=== PATIENT | male | born 1965 | race Caucasian/White ===

== ENCOUNTER → 2017-03-20 | Outpatient (CLI) | payer OTHER ==
[~2017-03-20] VITALS: Ht 185.4 cm; Wt 72.6 kg
[~2017-03-20] MED LIST: AMBIEN 10 MG TA10 MG PO; AMBIEN PO; CIPROFLOXACIN500 M1 PO; OXYCONTIN20 M1 PO; PERCOCET 10-321 EACH; PERCOCET 5-3251 EACH PO; PERCOCET 7.5-31 EACH PO; PROTONIX PO; PROTONIX40 M1 PO; TAMSULOSIN HCL0.4 MG PO; ZOFRAN ODT4 MG PO
--- NOTE | ~2017-03-20 | S ---
[facility] [place] [address] SURGICAL PATH RPT PROCEDURE Name: MARIAJOSE HENDERSON Room #: REG [facility].#: [id number] Admission: 03/20/17 Date of : 61 Discharge: Report #: [id number] Path Case #: [id number] PATHOLOGY REPORT COLLECTION DATE: 03/20/2017 RECEIVED DATE: 03/20/2017 SUBMITTING PHYS: Dr. Skip Oconnor OTHER PHYS: Dr. Aguila Cortez SPECIMEN(S) RECEIVED: A.Bx of small bowel B.Bx of gastritis C.Bx of gastric polyps * * * * * * * * * * * * FINAL DIAGNOSIS: A. Small bowel mucosa, small bowel endoscopic biopsy: - Focal gastric fundic-type metaplasia with active inflammation compatible with mild peptic duodenitis. - Negative for villous blunting or increase in intraepithelial lymphocytes. B. Gastric mucosa, gastritis, endoscopic biopsy: - Moderate reactive gastropathy. - Negative for intestinal metaplasia or atrophy. - Negative for Helicobacter pylori. C. Polyps, gastric polyps, endoscopic biopsy: - Compatible with fundic gland polyps. - Negative for dysplasia. COMMENT: Helicobacter pylori immunohistochemical stain performed on block B1-negative. (IUV:pit; 03/24/2017) PATHOLOGIST: Liss Rushing M.D. REPORT ELECTRONICALLY SIGNED BY: Liss Rushing M.D. DATE/TIME: 03/24/2017 17:04 * * * * * * * * * * * * GROSS PATHOLOGY: A. Received in formalin labeled "Mariajose Henderson, BX of small bowel," are 3 segments of pruitt soft tissue measuring 1.1 x 0.2 x 0.2 cm in aggregate dimensions and ranging from 0.3 to 0.4 cm in maximum dimension. The specimen is submitted entirely in cassette A1. B. Received in formalin labeled "Mariajose Henderson Cly[place], BX of gastritis," are 4 segments of pruitt soft tissue measuring 2.0 x 0.[address] [address] SURGICAL PATH RPT PROCEDURE Name: MARIAJOSE HENDERSON Room #: REG [facility].#: [id number] Admission: 03/20/17 Date of : 61 Discharge: Report #: [id number] Path Case #: [id number] 0.2 cm in aggregate dimensions and ranging from 0.3 to 0.7 cm in maximum dimension. The specimen is submitted entirely in cassette B1. C. Received in formalin labeled "Mariajose Henderson [place], BX of gastric polyps," are 3 segments of pruitt soft tissue measuring 1.4 x 0.2 x 0.2 cm in aggregate dimensions and ranging from 0.2 to 0.6 cm in maximum dimension. The specimen is submitted entirely in cassette C1. (LONNIE; 03/21/2017) CLINICAL HISTORY: Anemia INITIAL CPT CODE(S): A; 05393 B; 18363, 65996 C; 93064 Professional services performed by [facility] at [address] , [place] [address] Technical services performed by [facility] at [address] [place] [address], [address], [place] [address]. [facility] [address] [place] [address] PHONE: [phone] DIRECTOR: Raymundo Bernard M.D. * * * END OF REPORT * * *
== END | disposition home or self-care (01) ==
LOC: GI 07:05
DX: K56.69 Other intestinal obstruction (principal); K31.7 Polyp of stomach and duodenum; K31.9 Disease of stomach and duodenum, unspecified; K29.70 Gastritis, unspecified, without bleeding; K21.9 Gastro-esophageal reflux disease without esophagitis; D50.9 Iron deficiency anemia, unspecified; Z87.19 Personal history of other diseases of the digestive system; Z98.890 Other specified postprocedural states
CPT/HCPCS: 62110; 62900

== ENCOUNTER → 2018-02-27 | Outpatient (CLI) | payer OTHER ==
[2018-02-27 13:46] VITALS: BP 92/58
[2018-02-27 14:30] VITALS: BP 112/58
[2018-02-27 15:00] VITALS: BP 106/67
== END ==
LOC: OPONC 13:01
DX: D50.9 Iron deficiency anemia, unspecified (principal); K62.5 Hemorrhage of anus and rectum; D50.1 Sideropenic dysphagia
CPT/HCPCS: 95000

== ENCOUNTER → 2018-03-06 | Outpatient (CLI) | payer OTHER ==
[2018-03-06 10:50] VITALS: BP 105/71
[2018-03-06 11:45] VITALS: BP 104/64
== END ==
LOC: OPONC 00:56
DX: D50.9 Iron deficiency anemia, unspecified (principal); K62.5 Hemorrhage of anus and rectum; D50.1 Sideropenic dysphagia
CPT/HCPCS: 95000

== ENCOUNTER → 2018-07-28 | Outpatient (CLI) | payer OTHER ==
--- NOTE | ~2018-07-28 | 2DMMODE ---
[facility] [place] [address] 2 D/M-MODE ECHOCARDIOGRAM Name: ELHAM LEONARD ISABELL Room #: REG [facility]#: [id number] Admission: 07/28/18 Attend Phys: Aguila Cortez, Discharge: Date of : 61 Date of Service: 07/28/18 1030 Report #: [id number] THIS REPORT FOR: //name// APPROVED REPORT Study performed: 07/28/2018 09:30:45 EXAM: Comprehensive 2D, Doppler, and color-flow Echocardiogram Patient Location: Out-Patient BSA: 2.02 HR: 84 bpm BP: 104/64 mmHg Rhythm: NSR Other Information Study Quality: Good 2D Dimensions RVDd: 34.50 mm IVSd: 6.73 (7-11mm) LVOT Diam: 24.01 (18-24mm) LVDd: 47.14 mm PWd: 8.87 (7-11mm) Ascending Ao: 36.87 (22-36mm) LVDs: 30.50 (25-40mm) Left Atrium: 44.09 (27-40mm) Aortic Root: 32.75 mm LV Single Plane 4CH: 58.33 % LV Single Plane 2CH: 66.66 % Volumes Left Atrial Volume (Systole) Single Plane 4CH: 47.08 mL Single Plane 2CH: 26.34 mL Aortic Valve AoV Peak Robb.: 1.14 m/s AO Peak Gr.: 5.17 mmHg LVOT Max P.15 mmHg AO Mean Gr.: 2.98 mmHg LVOT Mean P.35 mmHg AO V2 Mean: 0.80 m/s LVOT Max V: 0.89 m/s AO V2 VTI: 19.82 cm LVOT Mean V: 0.52 m/s ALFONSO (VTI): 4.00 cm2 LVOT V1 VTI: 17.50 cm ALFONSO Vmax: 3.53 cm2 SV (LVOT): 79.21 mL Mitral Valve E/A Ratio: 0.9 [facility] [address] [place] [address] 2 D/M-MODE ECHOCARDIOGRAM Name: ELHAM LEONARD ISABELL Room #: REG [facility]#: [id number] Admission: 07/28/18 Attend Phys: Aguila Cortez, Discharge: Date of : 61 Date of Service: 07/28/18 1030 Report #: [id number] MV Decel. Time: 213.92 ms MV E Max Robb.: 0.65 m/s MV A Robb.: 0.76 m/s MV PHT: 62.04 ms IVRT: 62.28 ms Pulmonary Valve PV Peak Robb.: 0.85 m/s PV Peak Gr.: 2.86 mmHg KS End Vmax: 1.08 m/s Pulmonary Vein P Vein S: 0.74 m/s P Vein A: 0.69 m/s P Vein D: 0.43 m/s P Vein A Dur.: 145.3 msec P Vein S/D Ratio: 1.72 Tricuspid Valve TR Peak Robb.: 1.98 m/s TR Peak Gr.: 15.75 mmHg Left Ventricle The left ventricle is normal size. There is normal left ventricular wall thickness. The left ventricular systolic function is normal. The left ventricular ejection fraction is within the normal range. LVEF is 60-65%. Right Ventricle The right ventricle is normal size. The right ventricular systolic function is normal. Atria The left atrium size is normal. The right atrium size is normal. Aortic Valve The aortic valve is normal in structure. No aortic regurgitation is present. Mitral Valve The mitral valve is normal in structure. Trace mitral regurgitation. No evidence of mitral valve stenosis. Tricuspid Valve The tricuspid valve is normal in structure. Trace tricuspid regurgitation. Estimated PAP 19 mmHg. Pulmonic Valve [address] [address] 2 D/M-MODE ECHOCARDIOGRAM Name: ELHAM LEONARD Room #: REG [facility]#: [id number] Admission: 07/28/18 Attend Phys: Aguila Cortez, Discharge: Date of : 61 Date of Service: 07/28/18 1030 Report #: [id number] The pulmonary valve is normal in structure. There is no pulmonic valvular regurgitation. Great Vessels The aortic root is normal in size. The ascending aorta is borderline dilated. IVC is normal in size and collapses >50% with inspiration. Pericardium There is no pericardial effusion. <Conclusion> The left ventricle is normal size. LVEF is 60-65%. The aortic valve is normal in structure. The mitral valve is normal in structure. Trace mitral regurgitation. The tricuspid valve is normal in structure. Trace tricuspid regurgitation. Estimated PAP 19 mmHg. The pulmonary valve is normal in structure. There is no pericardial effusion. <ELECTRONICALLY SIGNED> By: Alex Curtis MD 07/28/18 1030 1030 1030 Alex Curtis MD /INF
== END ==
LOC: CV 07:11
DX: R00.2 Palpitations (principal)

== ENCOUNTER → 2020-05-09 | Outpatient (CLI) | payer OTHER | LOC: LAB 05-04 14:13 → GI 05-10 12:38 | PROVIDERS: ATTEND Specialist | DX: U07.1 COVID-19 (principal) ==

== ENCOUNTER → 2020-05-11 | Outpatient (CLI) | payer OTHER | END | disposition home or self-care (01) | LOC: GI 07:38 | PROVIDERS: ATTEND Specialist | DX: D50.9 Iron deficiency anemia, unspecified (principal); Z79.899 Other long term (current) drug therapy; Z91.041 Radiographic dye allergy status ==